=== PATIENT | female | born 1960 | race Caucasian/White ===

== ENCOUNTER 2021-05-15 16:24 | Emergency (ER) | payer MEDICAID, SELFPAY ==
--- NOTE | ~2021-05-15 | CT_ITS ---
EXAMINATION: CT ABDOMEN AND PELVIS WITHOUT CONTRAST CLINICAL INFORMATION: Right lower quadrant abdominal pain, right flank pain; rule out kidney stone COMPARISON: None TECHNIQUE: Multidetector volumetric imaging was performed from the superior aspect of the liver through the pubic symphysis. Sagittal and coronal reformatted images were obtained on the technologist's workstation. This CT examination was performed using dose optimization techniques as appropriate, variously including the following: *Automated exposure control *Adjustment of mA and/or kV according to patient size (this includes techniques or standardized protocols for targeted exams where dose is matched to indication/reason for exam; i.e. extremities or head) *Use of iterative reconstruction technique DLP: 434 mGy-cm FINDINGS: LUNG BASES: The visualized lung bases are unremarkable. LIVER, GALLBLADDER, AND BILIARY TREE: The liver is normal in size, shape, and attenuation. No focal hepatic lesion or biliary ductal dilatation is present. The gallbladder is unremarkable with no evidence of radiopaque gallstones, gallbladder wall thickening, or obvious pericholecystic inflammatory changes. PANCREAS: Unremarkable. SPLEEN: Unremarkable. ADRENAL GLANDS: Unremarkable. KIDNEYS AND URETERS: The right kidney is normal in size and density. There is a 4.1 cm cyst in the lateral mid right kidney. There are nonobstructive intrarenal calculi in the lower pole of the right kidney measuring 3 mm and 2 mm. There is a 5 mm calculus at the right ureteropelvic junction with moderate right hydronephrosis. There is no distal ureteral calculus. The left kidney and ureter appear normal. BLADDER: Unremarkable. GASTROINTESTINAL TRACT: The small and large bowel are unremarkable. There is moderate left colonic diverticulosis without evidence of diverticulitis. The appendix is unremarkable. ABDOMINAL WALL: No significant hernia is appreciated. LYMPH NODES: Normal. VASCULAR: Scattered calcific plaque without aneurysm. PELVIC VISCERA: Unremarkable. OSSEOUS STRUCTURES: Degenerative disc and facet disease at L5-S1. CT/CT abdomen pelvis wo con IMPRESSION: 5 mm calculus at the right ureteropelvic junction with moderate right hydronephrosis. Nonobstructive right intrarenal calculi.
[2021-05-15 16:30] VITALS: BP 150/80; BP 151/82; PULSE 90; RESP 16; TEMP 36.9; O2SAT 97; O2SAT 99; BMI 24.9
--- NOTE | 2021-05-15 16:40 | ED.GENADULT ---
HPI - General Adult General Chief complaint: Back Pain/Injury Stated complaint: flank pain Time Seen by Provider: 05/15/21 16:28 Source: patient and EMS Mode of arrival: EMS Limitations: no limitations History of Present Illness HPI narrative: 60-year-old female who presents emergency department for evaluation of right flank and right lower quadrant abdominal pain. The the patient has been at the [facility] facility for approximately 1 month for rehab for loss of balance and difficulty walking after having a fall approximately 6 weeks prior, she states she initially was seen at [facility] and then sent to rehab. She states this morning she developed pain in her right lower abdomen and right flank area. She states the pain came on slowly but got progressively worse. She states that currently the pain is a sharp, stabbing pain that is constant and is 8/10. Patient has associated nausea with no vomiting. She states she did have some loose diarrheal stools today with no blood in the stools. She denied frequency, urgency or dysuria. She denied fever, chills, myalgias, arthralgias, chest pain, shortness of breath. The patient states that she has been vaccinated for COVID-19 while she was at the rehab center but does not know of vaccine she got, she believes that she only received 1 shot. Related Data Previous Rx's Medication Instructions Recorded morphine 15 mg immediate release 15 mg PO Q4-6H PRN #14 tab 05/15/21 tablet prednisone 20 mg tablet 60 mg PO DAILY 7 Days #21 tab 05/15/21 tamsulosin 0.4 mg capsule (Flomax) 0.4 mg PO DAILY #30 cap 05/15/21 Allergies Allergy/AdvReac Type Severity Reaction Status Date / Time iodine Allergy Unknown Verified 05/15/21 16:37 Review of Systems Review of Systems: Yes all other systems are reviewed and are negative [facility] Past Medical History [facility] Narrative: Past medical history: Obtained from shelter notes: Hypertension, depression, anxiety, alcohol use disorder, substance use disorder (opiates and benzodiazepines) acute kidney injury, mild rhabdomyolysis, 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 Past surgical history: None. Social history: The patient is a long-term resident at the [facility] in [facility], she has been there since 02/19/2021. The patient smokes less than 1/2 pack of cigarettes per day times 46 years. The patient has a history of alcohol use disorder with 16 years of sobriety, apparently she really collapsed in July of 2020 was drinking 1 pt of alcohol per day prior to being admitted to the assisted facility. Medical History Hypertension Social History Social History Advance Directives: No Advance Directives Information Provided: No Physical Exam Vital Signs: Vital Signs: Last Vital Signs Temp 98.5 F 05/15/21 16:30 Pulse 80 05/15/21 18:28 Resp 16 05/15/21 18:28 BP 138/63 05/15/21 18:28 Pulse Ox 99 05/15/21 18:28 Body Mass Index 24.9 Const: General: cooperative and no acute distress Orientation/consciousness: oriented to person and oriented to place Limitations: no limitations HENMT: Head: Yes normal to inspection, Yes normocephalic and Yes atraumatic Ears: external ears normal General nose exam: Normal external nose present Face and sinus: Yes normal facial exam Mouth: Normal oral and palatal mucosa present Throat: Yes posterior oropharynx normal Eyes: General: appearance normal, both eyes and all related structures Pupils: Equal, round and reactive pupils present Neck: Neck: Yes normal visual inspection, Yes no lymphadenopathy, Yes trachea midline and Yes supple Chest: Chest palpation & inspection: normal inspection of the chest and normal palpation of entire chest wall Resp: Effort & Inspection: normal respiratory effort and able to speak in complete sentences Auscultation: clear to auscultation bilaterally Cardio: Rate: regular rate Rhythm: regular rhythm Heart sounds: S1 normal heart sound present, S2 normal heart sound present and no murmurs GI: Inspection: Yes normal to inspection Palpation (GI): Soft to palpation, Tenderness to palpation present (GI) in the RLQ (Mild) and no guarding Auscultation: normal bowel sounds : General: Yes CVA tenderness on the right (Moderate) Back/Spine/Pelvis: Back: CVA tenderness Skin: General skin exam: no rashes or lesions noted Neuro: General: oriented to person and oriented to place Cranial nerves: Yes CN's II-XII intact bilaterally and Yes Equal, round and reactive pupils present Cognition (Neuro): normal cognition Motor exam (neuro): 5/5 motor strength present throughout Extrem: General: Yes normal to inspection Psych: Appearance: grossly normal Speech and movement: Normal speech and movement present Affect: normal affect Attitude: cooperative Thought process: Normal thought process present Thought content: Normal thought content present Course Course Course Narrative: 6-year-old female who presents emergency department for evaluation of right lower quadrant and right flank pain that came on gradually and got progressively worse. Pain is currently at a 10. Vital signs blood pressure 151/82 otherwise were unremarkable. Physical examination did reveal mild right lower quadrant tenderness and moderate right flank tenderness. I ordered a laboratory evaluation to include CBC, CMP, lipase, urinalysis. CT scan of the abdomen pelvis without IV contrast was ordered as well to evaluate cause for the patient's pain. The patient did receive Toradol 15 mg IV by the paramedics with no relief for pain. The patient was given morphine 4 mg IV for pain and Zofran 4 mg IV for nausea. She was also ordered to get normal saline x1 L. 1936: The patient required 2 doses of morphine 4 mg IV to control her pain. At the time of re-evaluation she feels significantly better and is pain free. The patient's laboratory evaluation revealed an unremarkable CBC and a normal CMP with normal kidney function. Urinalysis revealed 3+ RBCs positive nitrates. Microscopic revealed 1229 RBCs, 0 WBCs and no bacteria. CT scan of the abdomen pelvis without IV contrast revealed a 5 mm at the right UV P junction with moderate hydronephrosis The patient has 2 incidental findings, a nonobstructing stones in the right kidney measuring 3 mm and 2 mm and a 4.1 cm cyst in the lateral mid right kidney. The patient will be discharged back to her care facility. She will be started on prednisone 40 mg once a day for 7 days to reduce inflammation and help with her pain. She will also be treated with Tylenol 1000 mg every 4-6 hours as needed for pain and for pain not relieved by these medications morphine 15 mg 1 pill every 4-6 hours as needed for pain. She will need to follow-up with our on-call urologist for re-evaluation in 3-7 days. Medical Decision Making Lab Data Result diagrams: 05/15/21 16:59 05/15/21 17:48 Labs: Lab Results 05/15/21 05/15/21 05/15/21 Range/Units 16:59 17:48 18:15 WBC 8.8 (4.8-10.8) X10*3/uL RBC 4.37 (4.20-5.50) X10*6/uL Hgb 12.2 (12.0-16.0) g/dl Hct 37.0 (37-47) % MCV 84.7 (80-98) fL MCH 27.9 (27.0-33.0) pg MCHC 33.0 (31.0-35.0) g/dl RDW 11.8 (11.0-16.0) % Plt Count 232 (160-400) X10*3/uL MPV 10.6 (9.4-12.3) fL Immature Gran % (Auto) 0.2 (0.0-0.4) % Neut % (Auto) 59.8 (45-73) % Lymph % (Auto) 34.5 (20-40) % [place] % (Auto) 4.3 (2-11) % Eos % (Auto) 0.9 (0-4) % Baso % (Auto) 0.3 (0-2) % Lymph # (Auto) 3.0 (1.2-4.9) X10*3/uL [place] # (Auto) 0.4 (0.1-1.2) X10*3/uL Eos # (Auto) 0.1 (0.0-0.4) X10*3/uL Baso # (Auto) 0.0 (0.0-0.2) X10*3/uL Abs Immat Gran (auto) 0.02 (0.00-0.03) X10*3/uL Absolute Neuts (auto) 5.2 (2.0-8.3) X10*3/uL Absolute Nucleated RBC 0.000 (0.0-0.012) X10*3/uL Nucleated RBC % (auto) 0.0 (0.0-0.2) /100WBC Sodium 141 (135-145) mmol/L Potassium 3.8 (3.3-5.1) mmol/L Chloride 109 H (96-108) mmol/L Carbon Dioxide 24 (22-29) mmol/L Anion Gap 12 (12-20) BUN 17 H (9-16) mg/dL Creatinine 0.99 (0.5-1.4) mg/dL Estim Creat Clear Calc 56.4 Estimated GFR 57 Random Glucose 102 (60-115) mg/dL Calcium 9.6 (8.4-10.2) mg/dL Total Bilirubin 0.4 (0.0-1.0) mg/dL AST 13 (5-31) U/L ALT 12 (0-31) U/L Alkaline Phosphatase 80 (39-117) U/L Total Protein 6.6 (6.5-8.0) g/dL Albumin 4.0 (3.5-5.0) g/dL Lipase 20 (8-78) U/L Urine Color YELLOW Urine Appearance CLOUDY Urine pH 5.5 (5.0-8.0) Ur Specific [place] >= 1.030 H (1.005-1.025) Urine Protein 2+ H (NEG-TRACE) MG/DL Urine Glucose (UA) NEG (NEG) MG/DL Urine Ketones 5 (NEG) MG/DL Urine Blood 3+ H (NEG) Urine Nitrite POS H (NEG) Ur Leukocyte Esterase NEG (NEG) Urine RBC 15-29 H (0) /HPF Urine WBC 0 (0-4) /HPF Ur Squamous Epith Cells NONE /LPF Calcium Oxalate Crystal TRACE /LPF Urine Bacteria 2+ /LPF Urine Yeast 2+ /HPF Discharge Plan Discharge Clinical Impression: Renal colic on right side, Calculus of proximal right ureter, Hydronephrosis of right kidney, Renal cyst, right, Calculus of right kidney Patient Disposition: Home, Self-Care Instructions: How to Strain Your Urine (ED), Ureteral Stones (ED) Additional Instructions: Your blood work was normal with a normal CBC and normal CMP. Your kidney function is normal at this time. Your urine revealed blood in the urine but no evidence of infection, this goes along with a kidney stone. The CT scan of your abdomen pelvis without IV contrast revealed a 5 mm stone in the proximal ureteral pelvic junction with hydronephrosis (swelling of the kidney). This kidney stone explains the pain that you are experiencing today. You have to incidental findings, in your right kidney you have a 2 mm and 3 mm kidney stone that are not father you at this time. You also have a 4.1 cm right kidney cyst which needs follow-up but no treatment. I am starting you on Flomax (tamsulosin) 0.4 mg 1 pill once a day. This may help you pass the kidney stone faster. You need to be on this medication to you pass the kidney stone. For pain I am starting you on prednisone 40 mg once a day for 7 days, this is a anti-inflammatory medication. Also take extra-strength Tylenol 500 mg pills, 2 pills every 4-6 hours as needed for pain. For pain not relieved by prednisone and Tylenol take morphine 15 mg pills, 1 pill every 4-6 hours as needed for pain. Strain your urine. Follow-up with our on-call urologist in 4-7 days. Follow-up with your doctor in 2 days. Please return to the emergency department if your symptoms get worse or if you develop any symptoms that are concerning to you. Prescriptions: New prednisone 20 mg tablet 60 mg PO DAILY 7 Days Qty: 21 RF: 0 tamsulosin [Flomax] 0.4 mg capsule 0.4 mg PO DAILY Qty: 30 RF: 0 morphine 15 mg tablet 15 mg PO Q4-6H PRN (Reason: pain) Qty: 14 RF: 0 Referrals: Heriberto Goode MD [Physician] - 1 week
[2021-05-15] MEDS: 0.9 % Sodium Chloride 1,000 ML 999 ML IV (17:00)
[2021-05-15] MEDS: ondansetron HCL 4 MG/2 ML VIAL IVPUSH (17:00)
[2021-05-15] MEDS: Morphine Sulfate 4 MG/ML CARTRIDGE IVPUSH ×2 (17:00→18:20)
[2021-05-15 17:17] LABS: MANUAL DIFF FLAG NO
[2021-05-15 17:27] LABS: Basophils Percent Auto 0.3 % (0-2); Eosinophils Absolute Auto 0.1 X10*3/uL (0.0-0.4); Eosinophils Percent Auto 0.9 % (0-4); Hemoglobin 12.2 g/dl (12.0-16.0); Imm Gran Abs Auto 0.02 X10*3/uL (0.00-0.03); Imm Gran Pct Auto 0.2 % (0.0-0.4); Lymphocytes Percent Auto 34.5 % (20-40); Mean Corpuscular Hemoglobin 27.9 pg (27.0-33.0); Mean Corpuscular Volume 84.7 fL (80-98); Mean Platelet Volume 10.6 fL (9.4-12.3); Monocytes Absolute Auto 0.4 X10*3/uL (0.1-1.2); Monocytes Percent Auto 4.3 % (2-11); Neutrophils Absolute Auto 5.2 X10*3/uL (2.0-8.3); Neutrophils Percent Auto 59.8 % (45-73); Platelet Count 232 X10*3/uL (160-400); Red Blood Count 4.37 X10*6/uL (4.20-5.50); Red Cell Distribution Width 11.8 % (11.0-16.0); White Blood Count 8.8 X10*3/uL (4.8-10.8)
[2021-05-15 18:16] LABS: Alanine Aminotransferase 12 U/L (0-31); Alkaline Phosphatase 80 U/L (39-117); Anion Gap 12 (12-20); Aspartate Amino Transferase 13 U/L (5-31); Bilirubin Total 0.4 mg/dL (0.0-1.0); Blood Urea Nitrogen 17 mg/dL (9-16); Calcium 9.6 mg/dL (8.4-10.2); Carbon Dioxide 24 mmol/L (22-29); Chloride 109 mmol/L (96-108); Creatinine Clr Calc Pharmacy 56.4; Estimated Glomerular Filt Rate 57; Glucose Random 102 mg/dL (60-115); Lipase 20 U/L (8-78); Potassium 3.8 mmol/L (3.3-5.1); Sodium 141 mmol/L (135-145); Total Protein 6.6 g/dL (6.5-8.0)
[2021-05-15 18:28] VITALS: BP 138/63; PULSE 80; RESP 16; O2SAT 99
[2021-05-15 18:46] LABS: Appearance Urine CLOUDY; Color Urine YELLOW; Glucose Urine UA NEG (NEG); Leukocyte Esterase Urine NEG (NEG); Nitrite Urine POS (NEG); PH 5.5 (5.0-8.0); Specific Gravity - Urine >= 1.030 (1.005-1.025); UACC Culture Trigger YES; Urine Blood 3+ (NEG); Urine Ketones 5 MG/DL (NEG); Urine Protein 2+ MG/DL (NEG-TRACE)
[2021-05-15 19:15] LABS: Bacteria Urine 2+ /LPF; WBC Urine 0 /HPF (0-4)
[2021-05-15 19:16] LABS: Calcium Oxalate Crystals Urine TRACE /LPF
--- NOTE | 2021-05-15 20:33 | PC.NURSE ---
Report attempted * 2 to care home.
== END 2021-05-15 20:34 | disposition home or self-care (01) ==
PROVIDERS: Emergency Provider Emergency Medicine Emergency Medical Services
DX: N13.39 Other hydronephrosis (principal); N20.2 Calculus of kidney with calculus of ureter; N23 Unspecified renal colic; N28.1 Cyst of kidney, acquired; Z79.899 Other long term (current) drug therapy
CPT/HCPCS: 36415; 74176; 80053; 81001; 83690; 85025; 87086; 96361; 96374; 96375; 96376; 99284; J2270; J2405

== ENCOUNTER 2022-03-19 13:06 | Outpatient (REF) | payer MEDICAID, SELFPAY ==
--- NOTE | ~2022-03-19 | MR_ITS ---
EXAMINATION: MR BRAIN WITHOUT CONTRAST CLINICAL INFORMATION: 61-year-old with cerebellar ataxia. COMPARISON: None TECHNIQUE: Multiplanar multisequence MR imaging of the brain was done without IV contrast. FINDINGS: Brain Volume: Suspect some degree of disproportionate cerebellar vermian volume loss relative to the remainder of the brain parenchyma and mild probable volume loss involving the cerebellar hemispheres bilaterally without significant volume loss of the brain stem or midbrain structures. No significant disproportionate supratentorial brain parenchymal volume loss within the limitations of a qualitative assessment. Structural: No malformations. Brain and Meninges: DWI sequence demonstrates no restricted diffusion. Specifically, there is no evidence for acute or subacute cerebral ischemia. Scattered punctate and patchy zones of FLAIR/T2 signal hyperintensity are seen within the white matter of both cerebral hemispheres which are nonspecific findings but likely reflect zones of chronic ischemic microangiopathy. Gradient refocused imaging demonstrates no evidence for hemorrhage, hemosiderin staining or abnormal mineral deposition. No extra-axial fluid collections, significant space-occupying process or mass effect are identified. Slightly prominent perivascular spaces noted in the parietal white matter bilaterally. Ventricles and Subarachnoid Spaces: The ventricular system is within normal limits in appearance without hydrocephalus. Subarachnoid spaces in the posterior fossa are consistent with some degree of volume loss. Orbital Structures: The visualized orbital structures are grossly unremarkable within the limitations of the study. Vascular: Signal voids are noted in the visualized major intracranial vessels. Osseous Structures, Sinuses/Mastoids, Extracranial Soft Tissues: Nasal septal deviation to the left, mild mucosal thickening in the maxillary sinuses and ethmoid complex. Mili bullosa right middle turbinate and a possible small retention cyst left maxillary sinus. Osseous marrow signal intensity appears grossly within normal limits within the limitations of the study. Visualized extracranial soft tissue structures are grossly unremarkable. MR/MR head/brain wo con IMPRESSION: 1. Mild chronic ischemic microangiopathy in the white matter of both cerebral hemispheres. No evidence for acute or subacute cerebral ischemia, hemorrhage, extra-axial fluid collection, space-occupying process, mass effect or hydrocephalus. 2. Somewhat disproportionate cerebellar volume loss as described above is suspected. 3. Sinonasal findings as discussed above.
== END 2022-03-19 13:07 | disposition home or self-care (01) ==
LOC: HO.MRI 13:06
PROVIDERS: Visit Provider Psychiatry & Neurology Neurology
DX: G11.9 Hereditary ataxia, unspecified (principal)
CPT/HCPCS: 70551

== ENCOUNTER 2025-03-10 09:52 | Outpatient (AMB) | payer MEDICARE, SELFPAY ==
--- NOTE | 2025-03-10 10:23 | A.OFFVIS_ITS ---
Intake Visit Reasons: 6 month Allergies iodine Allergy (Verified 05/15/21 16:37) Unknown Medication List - Last Reconciled 03/10/25 by Geovani Spencer MD aspirin 81 mg PO QAM atorvastatin 20 mg PO DAILY baclofen 10 mg PO TID PRN cholecalciferol (vitamin D3) 50 mcg PO DAILY doxazosin 2 mg PO QAM duloxetine 30 mg PO BID lorazepam 0.5 mg PO BID mirabegron ER (Myrbetriq) 50 mg PO DAILY morphine 15 mg PO Q4-6H PRN tamsulosin (Flomax) 0.4 mg PO DAILY HPI Comments Details: 64 years old woman with history of alcohol dependence and cerebellar type ataxia. She was living in a custodial and was not drinking anymore. She was taking small dose of lorazepam for ataxia and tremor. [facility] Medical History (Updated 03/10/25 @ 10:28 by Geovani Spencer MD) H/O alcohol abuse Cerebellar ataxia Hypertension Review of Systems Const Details: Constitutional:?No fever, chills, fatigue, weight loss, or night sweats. HEENT:?No headache, vision changes, hearing loss, nasal congestion, sore throat. Neurological:? Tremor and difficulty walking Psychiatric:?No anxiety, depression, mood swings, sleep disturbance, or hallucinations. Endocrine:?No heat/cold intolerance, polydipsia, polyuria, or hair/skin changes. Hematologic/Lymphatic:?No easy bruising, bleeding, or lymphadenopathy. Integumentary (Skin):?No rash, lesions, itching, or color changes. ? Physical Exam Neuro Other: Mental Status: Alert and oriented to person, place, and time. Cranial Nerves: CN II: Visual coley full to confrontation, visual acuity intact. CN III, IV, : Pupils equal, round, reactive to light and accommodation. Extraocular movements are normal. CN V: Facial sensation is normal. CN VII: Facial movements symmetrical. CN VIII: Hearing intact to bedside conversation is normal. CN IX, X: Palate elevates symmetrically. CN XI: Shoulder shrug and head turn symmetrical. CN XII: Tongue midline without atrophy or fasciculations. Moderate bilateral [id number] dysmetria Speech: Normal; no dysarthria or tremor. Assessment & Plan Assessment & Plan (1) Cerebellar ataxia: Comment: MRI brain WO at [facility] [place]: mild to mod cerebellar degen, mild mvd. Code(s): G11.9 - Hereditary ataxia, unspecified Category: Medical (2) H/O alcohol abuse: Code(s): F10.11 - Alcohol abuse, in remission Category: Medical Plan Impression: Ataxia and tremor related to history of alcohol abuse resulting in cerebellar degeneration symptomatically treated Recommendations: Lorazepam 0.5 mg twice a day Medications: New lorazepam 0.5 mg PO BID 180 tabs 1RF Coding Level of Care Code Tele Est Pt Level 4 (47631) Diagnoses Cerebellar ataxia G11.9 H/O alcohol abuse F10.11
== END 2025-03-10 10:34 | disposition home or self-care (01) ==
PROVIDERS: PCP Internal Medicine; Visit Provider Psychiatry & Neurology Neurology
DX: G11.9 Hereditary ataxia, unspecified (principal); F10.11 Alcohol abuse, in remission
CPT/HCPCS: 99214

== ENCOUNTER → 2025-03-10 09:52 | Outpatient (BNVA) | payer MEDICARE, SELFPAY | PROVIDERS: PCP Internal Medicine; Visit Provider Psychiatry & Neurology Neurology | DX: G11.9 Hereditary ataxia, unspecified (principal); F10.11 Alcohol abuse, in remission; Z79.82 Long term (current) use of aspirin; Z79.891 Long term (current) use of opiate analgesic; Z79.899 Other long term (current) drug therapy | CPT/HCPCS: 99212 ==